=== PATIENT | female | born 2005 | race Caucasian/White ===

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

== ENCOUNTER 2023-03-04 20:16 | Emergency (ER) | payer BC, SELFPAY ==
[2023-03-04 20:20] VITALS: BP 152/95; PULSE 81; RESP 16; TEMP 36.9; O2SAT 97; BMI 24.0
--- NOTE | 2023-03-04 20:28 | CRLHL7_ITS ---
For Patients: As a result of the Century Cures Act, medical imaging exams and procedure reports are released immediately into your electronic medical record. You may view this report before your referring provider. If you have questions, please contact your health care provider. INDICATION: Trauma. TECHNIQUE: Nasal bone 3 views. COMPARISON: 03/02/2023. FINDINGS/IMPRESSION: Nondisplaced fracture of the nasal bone. Nasal septum is midline. Paranasal sinuses and mastoid air cells are well aerated. Dictated by Tyrone Downey MD @ 03/04/2023 10:03:36 PM (Electronically Signed)
--- NOTE | 2023-03-04 20:45 | ED_ITS ---
[facility] - General Adult General Date Seen: 03/04/23 Chief complaint: Head Injury/Pain Stated complaint: Hit on nose Time Seen by Provider: 03/04/23 20:20 Source: patient Mode of arrival: ambulatory Limitations: no limitations History of Present Illness HPI narrative: Patient is a 17-year-old female presenting emergency department after gain hit in the face by a soccer ball are on 16:30 today. She states she was playing soccer on some kick ball hit her in the nose. She says initially she had lightheadedness and dizziness and some confusion but that has all since resolved she feels back to normal but continues to have pain to her nasal bridge. She does state her sense of smell has decreased since this occurred. Denies any other injuries. Related Data Home Medications Medication Instructions Recorded Confirmed desogestrel-ethinyl estradiol 0.1 1 tab PO DAILY 03/02/23 03/04/23 mg/0.125 mg/0.15 mg-25 mcg tablet (Velivet Triphasic Regimen (28)) Allergies Allergy/AdvReac Type Severity Reaction Status Date / Time animal dander Allergy Mild Hives Verified 03/04/23 20:24 Penicillins Allergy Mild Hives Verified 03/04/23 20:24 Review of Systems Narrative: Negative unless stated [facility] Social History Smoking Status: Never smoker Do you use any of these nicotine containing products: None Second hand tobacco smoke exposure: No How often do you have a drink containing alcohol: 2-3 times a week AUDIT-C Alcohol total score: 3 Non-prescribed substance use: denies use Exam Narrative: Exam Narrative: Const: Well-nourished, Well-developed, in mild distress Eyes: PERRL, no conjunctival injection, and symmetrical lids HENT: Swelling noted to the nasal bridge with tenderness. No hematoma noted within either nares. Moist mucous membranes. MSK:Extremities w/o deformity, Normal Active ROM Skin: Warm, Dry. No rashes or lesions. Neuro: Normal Muscle tone, No focal neurological deficits. Psych: Awake, Alert, & Oriented x3. Appropriate mood and affect. Const: Vital Signs, click to edit/add: Vital Signs - 24 hr 03/04/23 20:20 Temperature 98.4 F Pulse Rate [Pulse Oximeter] 81 Respiratory Rate 16 Blood Pressure [Ri ght Upper Arm] 152/95 H Pulse Oximetry 97 Oxygen Delivery Me thod Room Air Course Vital Signs Vital signs: Initial Vital Signs Temperature 98.4 F 03/04/23 20:20 Temperature Source Temporal Artery Scan 03/04/23 20:20 Pulse Rate 81 03/04/23 20:20 Pulse Rhythm Regular 03/04/23 20:20 Respiratory Rate 16 03/04/23 20:20 Blood Pressure 152/95 H 03/04/23 20:20 Blood Pressure Mean 114 H 03/04/23 20:20 Pulse Oximetry 97 03/04/23 20:20 Oxygen Delivery Method Room Air 03/04/23 20:20 Vital Signs Temperature 98.4 F 03/04/23 20:20 Pulse Rate 81 03/04/23 20:20 Respiratory Rate 16 03/04/23 20:20 Blood Pressure 152/95 H 03/04/23 20:20 Pulse Oximetry 97 03/04/23 20:20 Oxygen Delivery Method Room Air 03/04/23 20:20 Temperature 98.4 F 03/04/23 20:20 Pulse Rate 81 03/04/23 20:20 Respiratory Rate 16 03/04/23 20:20 Blood Pressure 152/95 H 03/04/23 20:20 Pulse Oximetry 97 03/04/23 20:20 Oxygen Delivery Method Room Air 03/04/23 20:20 Medical Decision Making MDM Narrative Medical decision making narrative: Patient is a 17 female who got hit in the nose by a soccer ball level 16:30 today. She was initially lightheadedness, dizziness, confusion but that resolve d quickly. She thinks she may got a concussion. She continues to have pain to the nasal bridge. No hematomas were seen with in the mucosal membranes. We will do an x-ray to check for any fractures. She is not wanting any pain medication at this time. I reviewed the x-rays only show appears to be nondisplaced nasal fractures. She is having no pain to her frontal sinus or maxillary sinuses and I do not believe facial bone imaging is necessary. She can be discharged home. I did give her information for ENT for if she does have issues with her nose. She is agreeable to this plan Discharge Plan Discharge Clinical Impression: Nasal injury Patient Disposition: Home, Self-Care Condition: Stable Instructions: Nasal Contusion (ED), Nasal Fracture (ED) Additional Instructions: Return to the emergency department for any new or worsening symptoms. Prescriptions: No Action Velivet Triphasic Regimen (28) 0.1/.125/.15-25 mg-mcg tablet 1 tab PO DAILY Follow Up/Referrals: Provider,Not a Local [Primary Care Provider] - Stand Alone Forms: [employer] Info Instructions
[2023-03-04] MEDS: OXYCODONE 5 MG TABLET PO (21:34)
== END 2023-03-04 21:20 | disposition home or self-care (01) ==
LOC: ED 21:21
PROVIDERS: Emergency Provider Student in an Organized Health Care Education/Training Program
DX: S02.2XXA Fracture of nasal bones, initial encounter for closed fracture (principal); W21.02XA Struck by soccer ball, initial encounter
CPT/HCPCS: 70160; 99282; 99283; A9270